=== PATIENT | female | born 1990 ===

== ENCOUNTER 2019-05-24 20:35 | Emergency (ER) | payer OTHER ==
--- NOTE | 2019-05-24 21:30 | UC ---
Laceration HPI - HPI Summary HPI Summary: 28 y/o female presents to the urgent care c/o left hand w/ a discrete laceration on the ulnar side s/p opening a tin can of kidney beans and sliced outer part of left hand around 1700pm today. Pt also feels mild RUSSELL. body aches , nasal congestion and low grade fever today. Her last Tetanus vaccine was given 7 years ago and she called ER and was told she should come in for tetanus shot. Pain at touch is 3/10 and she can move her finger w/o any difficulty. Pt denies dizziness, numbness or tingling sensation over the left hand, SOB, cough , chest pain, neck pain, abdominal pain, N/V/d. - History Of Current Complaint Chief Complaint: UCLaceration Stated Complaint: LEFT HAND LACERATION Time Seen by Provider: 05/24/19 21:29 Hx Obtained From: Patient Laceration Location: Hand - left hand w/ discrete laceration on lateral side Mechanism Of Injury: Sharp Trauma - laceration w/ a tin can about 4 hrs ago Onset/Duration: Lasting Hours - 4 hrs ago Severity: Mild Pain Intensity: 4 - at touch Pain Scale Used: 0-10 Numeric Aggravating Factors: Other: - touch Related History: Dominant Hand Right - Allergies/Home Medications Allergies/Adverse Reactions: Allergies Allergy/AdvReac Type Severity Reaction Status Date / Time No Known Allergies Allergy Verified 05/24/19 21:24 Home Medications: Home Medications NK [No Home Medications Reported] 05/24/19 [History Confirmed 05/24/19] PMH/Surg Hx/FS Hx/Imm Hx Previously Healthy: Yes - Pt denies PMHX - Surgical History Surgical History: Yes Surgery Procedure, Year, and Place: appy - Family History Known Family History: Positive: None - Pt deneis FMHX - Social History Occupation: Unemployed Lives: With Family Alcohol Use: Occasionally Substance Use Type: None Smoking Status (MU): Never Smoked Tobacco - Immunization History Most Recent Tetanus Shot: 7 yrs ago Hx Tetanus, Diphtheria Vaccination: No Review of Systems All Other Systems Reviewed And Are Negative: Yes Constitutional: Positive: Fever, Chills, Fatigue, Other - body aches Skin: Positive: Other - laceration of lateral side of left hand w/ a tin can Eyes: Positive: Negative ENT: Positive: Sinus Congestion Respiratory: Positive: Negative Cardiovascular: Positive: Negative Gastrointestinal: Positive: Negative Genitourinary: Positive: Negative Motor: Positive: Negative Neurovascular: Positive: Negative Musculoskeletal: Positive: Myalgia, Other: - left hand pain s/p laceration Neurological: Positive: Headache Psychological: Positive: Negative Is Patient Immunocompromised?: No Physical Exam - Summary Physical Exam Summary: Vital Signs Reviewed: Yes General: well developed, well nourished female sitting in the examining table w/ o any apparent distress Eye Exam: Normal Eyes: Positive: Conjunctiva Clear - PERRLA, EOMI, fundi grossly normal ENT: Positive: Normal ENT inspection, Hearing grossly normal, Pharynx normal, TMs normal Neck: Positive: Supple, Nontender, No Lymphadenopathy Respiratory: Positive: Chest non-tender, Lungs clear, Normal breath sounds, No respiratory distress Cardiovascular: Positive: RRR, No Murmur, Pulses Normal, Brisk Capillary Refill Abdomen Description: Positive: Nontender, No Organomegaly, Soft. Negative: CVA Tenderness (R), CVA Tenderness (L) Bowel Sounds: Positive: Present Musculoskeletal: Positive: Strength Intact, ROM Intact, No Edema Neurological: Positive: Alert, Muscle Tone Normal Psychological Exam: Normal Skin: Positive: Ulnar side of LF hand w/ a discrete flap linear superficial laceration about 0.5cm in size, non bleeding, no foreign body observed. mild tenderness to palpation, no ecchymosis around wound. FROM of LF hand and fingers , sensation intact, capillary refill brisk, and pulses WNL. Triage Information Reviewed: Yes Vital Signs: Initial Vital Signs Temp 100.1 F 05/24/19 21:18 Pulse 86 05/24/19 21:18 Resp 18 05/24/19 21:18 BP 106/64 05/24/19 21:18 Pulse Ox 100 05/24/19 21:18 Laceration Course/Dx - Course/Dx Course Of Treatment: 28 y/o female presents to the urgent care c/o left hand w/ a discrete laceration on the ulnar side s/p opening a tin can of kidney beans and sliced outer part of left hand around 1700pm today. Pt also feels mild RUSSELL. body aches , nasal congestion and low grade fever today. Her last Tetanus vaccine was given 7 years ago and she called ER and was told she should come in for tetanus shot. Pain at touch is 3/10 and she can move her finger w/o any difficulty. Pt denies dizziness, numbness or tingling sensation over the left hand, SOB, cough , chest pain, neck pain, abdominal pain, N/V/d. Hx obtained. Pt is hemodynamically stable, Temp:100.1F. Pt w/ Ulnar side of LF hand w/ a discrete flap linear superficial laceration about 0.5cm in size, non bleeding, no foreign body observed. mild tenderness to palpation, no ecchymosis around wound. FROM of LF hand and fingers , sensation intact, capillary refill brisk, and pulses WNL on examination. LACERATION PROCEDURE NOTE: . Copious irrigation was done with saline and the wound explored. There was no FB or deep structure injury noted. wound cleaned w/ Iodine swabs. Laceration closed w/ 3 steri- strips. Wound dressed w/ sterile gauze.The Pt tolerated the procedure well without adverse effects. Neurovascular intact and FROM of left hand and fingers. Tdap ordered and applied by nurse. Pt w/ also a viral syndrome. Rapid influenza A&B: ordered: negative. Pt given Tylenol PO by nurse to alleviate symptoms. Pt tolerated well medication. Advised on hand washing to avoid spreading. Pt advised to rest, eat well and avoid strenuous exercise. If symptoms do not improve or worsen advised to return to the urgent care or f/u with her PCP for further evaluation and treatment. Pt advised if any signs of infection develop to immediately return to the urgent care of PCP for further management and treatment. d/C instructions explained. Pt understood and agreed w / plan of care. - Differential Dx - Laceration/Wound Differental Diagnoses: Abrasion, Avulsion, Cellulitis, Laceration, Suture Removal - Diagnosis Provider Diagnosis: Laceration of left hand, Viral syndrome Discharge ED - Sign-Out/Discharge Documenting (check all that apply): Patient Departure - d/c home All imaging exams completed and their final reports reviewed: No Studies - Discharge Plan Condition: Stable Disposition: HOME Patient Education Materials: Laceration (ED), Viral Syndrome (ED), Steristrips (ED) Referrals: [facility] [place]] - 1 Week Additional Instructions: 1-Please apply topical BAcitracin oint after steri-strips fall off . Keep wound clean and dry 2- You were given Tetanus vaccine today. 3-Rapid influenza A&B: negative. 3- Please Take Ibuprofen or Tylenol PO q6-8hrs prn for fever pain or swelling. 4- If you develop fever or redness around your hand please return to the Urgent care or f/u w/ your PCP for further management - Billing Disposition and Condition Condition: STABLE Disposition: Home
[2019-05-24] MEDS ORDERED: Tetan/Diph/Pertus SYR(Tdap)* 0.5 ML SYR(BOOSTRIX) use SYR contains LATEX IM ONE (21:45)
[2019-05-24] MEDS ORDERED: Acetaminophen TAB* 325 MG PO ONE (21:46)
[2019-05-24 22:01] LABS: Influenza A Molecular Negative (Negative); Influenza B Molecular Negative (Negative)
== END 2019-05-24 22:13 | disposition home or self-care (01) ==
LOC: UCCORT 20:35
DX: S61.412A Laceration without foreign body of left hand, initial encounter (principal); W26.8XXA Contact with other sharp object(s), not elsewhere classified, initial encounter; Y93.89 Activity, other specified; Y92.9 Unspecified place or not applicable; Z23 Encounter for immunization; B34.9 Viral infection, unspecified
CPT/HCPCS: 90471; 90715; 99202; A9270-GY; G0463